=== PATIENT | male | born 1945 | race Caucasian/White ===

== ENCOUNTER → 2020-06-22 | Outpatient (CLI) | payer MEDICARE, MEDICAID ==
--- NOTE | 2020-06-22 17:24 | RAD ---
Left lower extremity venous doppler ultrasound History: Left lower extremity pain Comparison: None Findings: Multiple grayscale, color, and duplex spectral analysis sonographic images were acquired of the left lower extremity veins to evaluate for the presence of DVT. There is normal phasicity. Normal compression, color-flow, and augmentation is demonstrated from the left common femoral to the popliteal veins. There is normal color flow of the proximal profunda femoris vein. There is normal color flow of segments of the calf veins. Impression: 1. There is no evidence of deep venous thrombosis from the left common femoral to the popliteal veins. Electronically signed by: Anjel Vickers MD (06/22/2020 5:21 PM) [id number]
== END | disposition home or self-care (01) ==
LOC: US 15:57
PROVIDERS: ATTEND Internal Medicine
DX: M79.662 Pain in left lower leg (principal)
CPT/HCPCS: 93971

== ENCOUNTER → 2021-07-05 | Outpatient (CLI) | payer MEDICAID, MEDICARE, OTHER ==
[2021-07-05 08:55] LABS: BACTERIA,URINE 0 /HPF (0-FEW); BILIRUBIN,URINE NEG (NEG); CLARITY,URINE CLEAR; COLOR,URINE YELLOW; GLUCOSE,URINE NEG (NEG); NITRITE,URINE NEG (NEG); RBC,URINE RARE /HPF (0-2); SQUAMOUS EPITHELIAL CELL,UR FEW /LPF
[2021-07-05 09:43] LABS: HEMATOCRIT 36.9 % (39.0-53.0); HEMOGLOBIN 11.6 g/dL (13.0-17.5)
[2021-07-05 09:53] LABS: ALBUMIN 3.6 g/dL (3.4-5.0); CALCIUM 9.1 mg/dL (8.5-10.1); GFR 32.6; MAGNESIUM 2.1 mg/dL (1.8-2.4); PHOSPHORUS 3.6 mg/dL (2.6-4.7); POTASSIUM 5.4 mmol/L (3.5-5.1); URIC ACID 4.6 mg/dL (3.5-7.2)
--- NOTE | 2021-07-05 12:14 | RAD ---
Procedure: US RENAL BILAT ([id number]) Clinical information: Abnormal renal function tests (794.4). Technique: Multiple longitudinal and transverse 2D real time ultrasound images through the kidneys we re acquired. Findings: The kidneys are normal in size, contour, cortical thickness, and echogenicity. The right kidney measures 15.1 x 7.0 x 5.7 . There is no evidence of hydronephrosis. There is no evid ence of a renal mass. The left kidney measures 15.0 x 6.2 x 5.9. There is no evidence of renal calculi. There is no evidenc e of hydronephrosis. There is no evidence of a renal mass. The urinary bladder is unremarkable. Prevoid volume measures 170.2 cubic centimeters where as there i s no post void residue. Atheromatous plaquing of the aorta is seen. IVC is patent Impression: 1. Large bilateral kidneys perhaps secondary to patient's large body habitus. Otherwise unremarkable exam. Electronically signed by: Moriah Lin MD (07/05/2021 12:11 PM) [id number]
[2021-07-05 15:08] LABS: CREATININE,RANDOM URINE 66.4 mg/dL (Not Establ.)
[2021-07-05 21:09] LABS: MICROALB RD UR 20.9 ug/mL (Not Estab.)
[2021-07-05 23:09] LABS: CALCIUM PTH 9.8 mg/dL (8.6-10.2); CREATININE PTH 1.97 mg/dL (0.76-1.27); PTH INTACT 46 pg/mL (15-65)
== END ==
LOC: US 07:44
PROVIDERS: ATTEND Internal Medicine Nephrology
DX: I70.0 Atherosclerosis of aorta (principal); D65 Disseminated intravascular coagulation [defibrination syndrome]; N18.4 Chronic kidney disease, stage 4 (severe); E11.22 Type 2 diabetes mellitus with diabetic chronic kidney disease; E11.21 Type 2 diabetes mellitus with diabetic nephropathy; D64.9 Anemia, unspecified; E21.3 Hyperparathyroidism, unspecified; J12.9 Viral pneumonia, unspecified; R80.9 Proteinuria, unspecified; E55.9 Vitamin D deficiency, unspecified
CPT/HCPCS: 36415; 76770; 80069; 81001; 82043; 82306; 82570; 82607; 82728; 83540; 83550; 83735; 83970; 84156; 84550; 85014; 85018; 87077; 87086